=== PATIENT | female | born 1995 | race Caucasian/White ===

== ENCOUNTER 2022-10-30 08:56 | Emergency (ER) | payer OTHER, SELFPAY ==
--- NOTE | ~2022-10-30 | XR_ITS ---
Right Shoulder Technique: AP and scapular Y views were obtained. Clinical History: Pain Findings: No fracture or dislocation is seen. Osseous alignment is anatomic. The glenohumeral and acr omioclavicular joint spaces are preserved. Soft tissues are unremarkable. Impression: Unremarkable right shoulder radiographs. Reviewed, dictated and finalized at [facility]. [employer] Impression: Unremarkable right shoulder radiographs.
--- NOTE | 2022-10-30 08:58 | ED.UPPEXIN ---
HPI - Extremity Injury (Upper) General Chief Complaint: Extremity Injury, Upper Stated Complaint: right shoulder pain and cough Time Seen by Provider: 10/30/22 08:58 Source: patient and RN notes reviewed History of Present Illness HPI narrative: Patient is a 26-year-old female who presents to urgent care with complaints of chronic right shoulder pain for the last month and a raspy cough that started a couple days ago. Patient states that she has been using Tylenol and muscle rub for the shoulder pain. Denies any known trauma or injury. Denies any repetitive motion required at her job. Patient has not followed up with her PCP regarding her pain. Denies any use of [id number] medication for her upper respiratory symptoms. Denies any recent fevers. No other acute complaints. No acute distress noted. Patient aware of the plan of care. Some parts of this dictation were generated by voice recognition software and may contain typographical and/or grammatical inaccuracies. Related Data Home Medications Medication Instructions Recorded Confirmed No Home Medications 10/30/22 10/30/22 Allergies Allergy/AdvReac Type Severity Reaction Status Date / Time No Known Allergies Allergy Verified 10/30/22 09:12 Review of Systems Review of Systems: CONSTITUTIONAL: Denies fever, chills, or sweats. EYES: Denies visual changes, redness, or discharge. ENT: Denies rhinorrhea, congestion, sore throat, or otalgia. CARDIOVASCULAR: Denies chest pain, palpitations, or edema. RESPIRATORY: reports of cough without dyspnea GASTROINTESTINAL: Denies abdominal pain, nausea, vomiting, or diarrhea. GENITOURINARY: Denies dysuria or hematuria. SKIN: Denies rash or itching. MUSCULOSKELETAL: Reports of right shoulder pain NEUROLOGIC: Denies headache, numbness, or weakness. All other systems reviewed are negative, except as documented in HPI. PMFSH Comments At the time of my signature, I reviewed and agree with the nursing past medical, surgical, social, and family history. There is no relevant family history pertinent to the patient complaint. Exam Narrative: GENERAL: This is a well-nourished, well-developed patient, in no apparent distress. HEAD: normocephalic, atraumatic. EYES: PERRL. Sclera clear/white. Vision is grossly intact. EARS: External ears normal, auditory canals clear and without drainage, TMs normal without perforation. Hearing grossly intact. NOSE: External nose normal with no obvious nasal discharge, nares without redness, no rhinorrhea. THROAT: Mucous membranes moist, posterior pharynx clear. Mild postnasal drainage NECK: Neck supple CARDIOVASCULAR: Regular rate and rhythm RESPIRATORY: Clear to auscultation. Breath sounds equal bilaterally. No wheezes, rales, or rhonchi. SKIN: warm, intact with no suspicious lesions or rash, good texture and turgor. NEURO: awake, alert, and oriented to person, place and time. There were no obvious focal neurologic abnormalities. EXTREMITIES: range of motion right upper extremity limited due to pain. Pain exacerbated with adduction and posterior reach. Mild anterior right shoulder joint tenderness. Positive strong right radial pulse with capillary refill less than 2 seconds. Course Course Level of Care: Express Care Visit Vital Signs Vital signs: Vital Signs Temperature 97.9 F 10/30/22 09:04 Pulse Rate 67 10/30/22 09:04 Respiratory Rate 20 10/30/22 09:04 Blood Pressure 113/74 10/30/22 09:04 Pulse Oximetry 100 10/30/22 09:04 Oxygen Delivery Room Air 10/30/22 09:04 Temperature 97.9 F 10/30/22 09:04 Pulse Rate 67 10/30/22 09:04 Respiratory Rate 20 10/30/22 09:04 Blood Pressure 113/74 10/30/22 09:04 Pulse Oximetry 100 10/30/22 09:04 Oxygen Delivery Room Air 10/30/22 09:04 reviewed MDM - Extremity Injury (Upper) MDM Narrative Medical decision making narrative: reviewed x-ray results with the patient. She is aware that x-ra
[2022-10-30 09:04] VITALS: BP 113/74; PULSE 67; RESP 20; TEMP 36.6; O2SAT 100
== END 2022-10-30 09:48 | disposition home or self-care (01) ==
PROVIDERS: Emergency Provider Nurse Practitioner Family; PCP Nurse Practitioner Family
DX: M25.511 Pain in right shoulder (principal); R05.9 Cough, unspecified
CPT/HCPCS: 73030; 99213; G0463